=== PATIENT | male | born 2000 | race Caucasian/White ===

== ENCOUNTER 2024-01-07 08:16 | Emergency (ER) | payer BC ==
[2024-01-07] MEDS ORDERED: KETOROLAC 30 MG/ML INJ ONE (09:02)
[2024-01-07 09:21] LABS: Absolute Eosinophils 0.1 K/uL (0-0.5); Absolute Lymphocytes (CBC) 2.2 K/uL (0.7-4.9); Absolute Neutrophil 9.3 K/uL (1.8-8.0); Basophils % 0.4 % (0-1.3); Eosinophils % 0.7 % (0-4.4); Hematocrit 46.2 % (39.6-49.0); Hemoglobin 15.7 g/dL (13.6-17.9); Lymphocytes % 17.3 % (15.3-44.8); MCH 29.1 pg (27.0-35.0); MCHC 33.9 g/dL (32.0-36.0); MCV 85.7 fL (80-100); MPV 8.1 fL (7.6-11.3); Neutrophils % 73.6 % (41.7-73.7); Nucleated Red Blood Cells % 0.1 % (0-0); Platelets 322 thou/uL (152-406); RBC Red Blood Cell Count 5.39 M/uL (4.33-5.43); Red Cell Distribution Width 13.2 % (12.1-15.2)
--- NOTE | 2024-01-07 09:24 | RAD REPORT ---
EXAM DESCRIPTION: RAD - Foot Left 3 View - 01/07/2024 9:17 am CLINICAL HISTORY: PAIN COMPARISON: No comparisons FINDINGS/IMPRESSION: No acute fracture. No malalignment. No significant focal degenerative changes.
[2024-01-07 09:38] LABS: Anion Gap 6.8 mEq/L (5.0-15.0); Potassium 3.8 mEq/L (3.5-5.1); Uric Acid 8.8 mg/dL (3.5-7.2)
--- NOTE | 2024-01-07 09:42 | ER ---
Nurse's Notes [facility] Name: Yahir Bobby Jr Age: 23 yrs Sex: Male : 2000 Arrival Date: 01/07/2024 Time: 08:16 Bed 2 Private MD: Diagnosis: Gout, unspecified Presentation: 01/06 08:31 Chief complaint: Patient states: left foot pain started while at work today, denies iw injury. Coronavirus screen: At this time, the client does not indicate any symptoms associated with coronavirus-19. Ebola Screen: Patient negative for fever greater than or equal to 101.5 degrees Fahrenheit, and additional compatible Ebola Virus Disease symptoms Patient denies exposure to infectious person. Patient denies travel to an Ebola-affected area in the 21 days before illness onset. No symptoms or risks identified at this time. Initial Sepsis Screen: Does the patient meet any 2 criteria? No. Patient's initial sepsis screen is negative. Does the patient have a suspected source of infection? No. Patient's initial sepsis screen is negative. Risk Assessment: Do you want to hurt yourself or someone else? Patient reports no desire to harm self or others. Onset of symptoms was January 07, 2024. 08:31 Method Of Arrival: Wheelchair iw 08:31 Acuity: JIMBO 4 iw 08:46 Acuity: JIMBO 3 iw Historical: - Allergies: 08:32 No Known Allergies; iw - Home Meds: 08:32 None [Active]; iw - PMHx: 08:32 None; iw - PSHx: 08:32 None; iw - Immunization history:: Adult Immunizations not up to date. - Infectious Disease History:: Denies. - Social history:: Smoking status: Reported history of juuling and/or vaping. Screenin:55 [facility] ED Fall Risk Assessment (Adult) History of falling in the last 3 months, ko1 including since admission No falls in past 3 months (0 pts) Confusion or Disorientation No (0 pts) Intoxicated or Sedated No (0 pts) Impaired Gait No (0 pts) Mobility Assist Device Used No (0 pt) Altered Elimination No (0 pt) Score/Fall Risk Level 0 - 2 = Low Risk Oriented to surroundings, Maintained a safe environment, Educated pt \T\ family on fall prevention, incl call for assistance when getting out of bed, Assessed \T\ reinforced patient's understanding of fall precautions, Provided non-skid footwear, Hourly rounding (assess needs \T\ fall precautionary measures) done. Abuse screen: Denies threats or abuse. Denies injuries from another. Nutritional screening: No deficits noted. Tuberculosis screening: No symptoms or risk factors identified. Assessment: 08:55 General: Appears in no apparent distress. Behavior is calm, cooperative, appropriate ko1 for age. Pain: Complains of pain in left foot. Neuro: No deficits noted. Cardiovascular: No deficits noted. Respiratory: No deficits noted. GI: No deficits noted. : No deficits noted. EENT: No deficits noted. Derm: No deficits noted. Musculoskeletal: Reports pain in left foot. Vital Signs: 08:31 BP 142 / 80; Pulse 86; Resp 16; Temp 97.8; Pulse Ox 97% on R/A; Weight 163.29 kg; iw Height 6 ft. 2 in. ; Pain 6/10; 09:17 BP 154 / 81; Pulse 81; Resp 16; Pulse Ox 100% ; ko1 09:45 BP 137 / 81; Pulse 98; Resp 14; Pulse Ox 99% ; ko1 08:31 Body Mass Index 46.22 (163.29 kg, 187.96 cm) iw 08:31 Pain Scale: Adult iw ED Course: 08:23 Patient arrived in ED. im 08:27 Riky Moura MD is Attending Physician. sp3 08:32 Triage completed. iw 08:40 Randy Alvarez, RN is Primary Nurse. bp 08:46 Arm band placed on. iw 08:55 Patient has correct armband on for positive identification. Bed in low position. Call ko1 light in reach. Side rails up X 1. Provided Education on: labs, meds, call light. Pulse ox on. NIBP on. Door closed. Noise minimized. Lights dimmed. Pillow given. 08:55 No provider procedures requiring assistance completed. ko1 09:10 Inserted saline lock: 20 gauge in right antecubital area, using aseptic technique. bp Blood collected. 09:19 Foot Left 3 View XRAY In Process Unspecified. EDMS 09:49 IV discontinued, intact, bleeding controlled, No redness/swelling at site. Pressure ko1 dressing applied. Administered Medications: 09:12 Drug: Ketorolac IVP 30 mg IVP once Route: IVP; Site: right antecubital; ko1 09:27 Follow up: Response: No adverse reaction ko1 09:44 Drug: Colcrys PO 0.6 mg PO once Route: PO; ko1 09:57 Follow up: Response: No adverse reaction ko1 Medication: 08:55 VIS not applicable for this client. ko1 Outcome: 09:42 Discharge ordered by . sp3 09:49 Discharged to home ambulatory, ko1 09:49 Condition: stable 09:49 Discharge instructions given to patient, Instructed on discharge instructions, follow up and referral plans. medication usage, Demonstrated understanding of instructions, follow-up care, medications, Prescriptions given X 2, 09:57 Patient left the ED. ko1 Signatures: Dispatcher [employer] EDCindy Govea RN RN Randy Jacobo RN Riky Ott MD MD sp3 Louisa Thomas RN RN ko1 Mary Ellen Garg Corrections: (The following items were deleted from the chart) 08:33 08:31 Pulse 86bpm; Resp 16bpm; Pulse Ox 97% RA; Temp 97.8F; 163.29 kg; Height 6 ft. 2 iw in.; BMI: 46.2; Pain 6/10, Adult; iw
--- NOTE | 2024-01-07 09:42 | EDPHYS ---
Physician Documentation [facility] Name: Yahir Bobby Jr Age: 23 yrs Sex: Male : 2000 Arrival Date: 01/07/2024 Time: 08:16 Bed 2 Private MD: ED Physician Riky Moura HPI: 01/06 08:49 This 23 yrs old Male presents to ER via Wheelchair with complaints of Foot Pain - left. sp3 08:49 23-year-old male with no past medical history presents with left foot pain that was sp3 there when he woke up. Pain is on the top of the foot extending laterally. He denies any injury, trauma, prior episodes, rash, other joint aches, other somatic symptoms or any other signs or symptoms on ROS at this time. No history of gout or other arthritis in his family.. Historical: - Allergies: 08:32 No Known Allergies; iw - Home Meds: 08:32 None [Active]; iw - PMHx: 08:32 None; iw - PSHx: 08:32 None; iw - Immunization history:: Adult Immunizations not up to date. - Infectious Disease History:: Denies. - Social history:: Smoking status: Reported history of juuling and/or vaping. ROS: 08:50 Constitutional: Negative for fever, chills, and weight loss, Eyes: Negative for injury, sp3 pain, redness, and discharge, Neck: Negative for injury, pain, and swelling, Cardiovascular: Negative for chest pain, palpitations, and edema, Respiratory: Negative for shortness of breath, cough, wheezing, and pleuritic chest pain, Abdomen/GI: Negative for abdominal pain, nausea, vomiting, diarrhea, and constipation, Back: Negative for injury and pain, : Negative for injury, bleeding, discharge, and swelling, Skin: Negative for injury, rash, and discoloration, Neuro: Negative for headache, weakness, numbness, tingling, and seizure, Psych: Negative for depression, anxiety, suicide ideation, homicidal ideation, and hallucinations, Allergy/Immunology: Negative for hives, rash, and allergies, Endocrine: Negative for neck swelling, polydipsia, polyuria, polyphagia, and marked weight changes, Hematologic/Lymphatic: Negative for swollen nodes, abnormal bleeding, and unusual bruising, 08:50 All other systems are negative, Exam: 08:50 Constitutional: This is a well developed, well nourished patient who is awake, alert, sp3 and in no acute distress. Head/Face: Normocephalic, atraumatic. Eyes: Pupils equal round and reactive to light, extra-ocular motions intact. Lids and lashes normal. Conjunctiva and sclera are non-icteric and not injected. Cornea within normal limits. Periorbital areas with no swelling, redness, or edema. Neck: Trachea midline, no thyromegaly or masses palpated, and no cervical lymphadenopathy. Supple, full range of motion without nuchal rigidity, or vertebral point tenderness. No Meningismus. Chest/axilla: Normal chest wall appearance and motion. Nontender with no deformity. No lesions are appreciated. Cardiovascular: Regular rate and rhythm with a normal S1 and S2. No gallops, murmurs, or rubs. Normal PMI, no JVD. No pulse deficits. Respiratory: Lungs have equal breath sounds bilaterally, clear to auscultation and percussion. No rales, rhonchi or wheezes noted. No increased work of breathing, no retractions or nasal flaring. Abdomen/GI: Soft, non-tender, with normal bowel sounds. No distension or tympany. No guarding or rebound. No evidence of tenderness throughout. Back: No spinal tenderness. No costovertebral tenderness. Full range of motion. Skin: Warm, dry with normal turgor. Normal color with no rashes, no lesions, and no evidence of cellulitis. Neuro: Awake and alert, GCS 15, oriented to person, place, time, and situation. Cranial nerves II-XII grossly intact. Motor strength 5/5 in all extremities. Sensory grossly intact. Cerebellar exam normal. Normal gait. Psych: Awake, alert, with orientation to person, place and time. Behavior, mood, and affect are within normal limits. 08:50 Musculoskeletal/extremity: Extremity exam normal except for left foot with pain on the top region over the proximal metatarsals without signs of injury. There is no swelling. DP pulses normal. Distal neurovascular exam including capillary refill is normal. No tophi noted.. Vital Signs: 08:31 BP 142 / 80; Pulse 86; Resp 16; Temp 97.8; Pulse Ox 97% on R/A; Weight 163.29 kg; iw Height 6 ft. 2 in. ; Pain 6/10; 09:17 BP 154 / 81; Pulse 81; Resp 16; Pulse Ox 100% ; ko1 09:45 BP 137 / 81; Pulse 98; Resp 14; Pulse Ox 99% ; ko1 08:31 Body Mass Index 46.22 (163.29 kg, 187.96 cm) iw 08:31 Pain Scale: Adult iw MDM: 08:33 Patient medically screened. sp3 08:50 Data reviewed: vital signs, nurses notes, lab test result(s), radiologic studies. ED sp3 course: 23-year-old male with no past medical history with left foot pain new in nature without trauma. Consider stress fracture versus other arthritic process. X-ray and labs pending. Ketorolac IV for pain control. Disposition pending workup and patient course with probable discharge and orthopedic follow-up as needed.. 09:41 ED course: Foot x-ray is normal. Uric acid elevated at 8.8 with remainder of labs sp3 unremarkable. Will treat with colchicine and NSAIDs and follow-up to PCP as needed.. 01/06 08:42 Order name: Basic Metabolic Panel; Complete Time: 09:40 sp3 01/06 08:42 Order name: CBC with Diff; Complete Time: 09:29 sp3 01/06 08:42 Order name: Uric Acid; Complete Time: 09:40 sp3 01/06 08:42 Order name: Foot Left 3 View XRAY; Complete Time: 09:29 sp3 01/06 08:42 Order name: IV Saline Lock; Complete Time: 09:10 sp3 01/06 08:42 Order name: Labs collected and sent; Complete Time: 09:10 sp3 Administered Medications: 09:12 Drug: Ketorolac IVP 30 mg IVP once Route: IVP; Site: right antecubital; ko1 09:27 Follow up: Response: No adverse reaction ko1 09:44 Drug: Colcrys PO 0.6 mg PO once Route: PO; ko1 09:57 Follow up: Response: No adverse reaction ko1 Disposition Summary: 01/07/24 09:42 Discharge Ordered Notes: Location: Home sp3 Condition: Stable sp3 Diagnosis - Gout, unspecified sp3 Followup: sp3 - With: Private Physician - When: Upon discharge from the Emergency Department - Reason: Continuance of care Discharge Instructions: - Discharge Summary Sheet sp3 - Gout sp3 Forms: - Medication Reconciliation Form sp3 - Antibiotic Education sp3 - Prescription Opioid Use sp3 - Patient Portal Instructions sp3 - Leadership Thank You Letter sp3 Prescriptions: - colchicine 0.6 mg Oral tablet - take 1 tablet ORAL route 2 times per day; 14 tablet; Refills: 0, Product sp3 Selection Permitted - Diclofenac Sodium 75 mg Oral Tablet Sustained Release - take 1 tablet ORAL route 2 times per day; 30 tablet; Refills: 0, Product sp3 Selection Permitted Signatures: Dispatcher [employer] Cindy Thornton RN RN iw Patel, Setul, MD MD sp3 Louisa Thomas RN RN ko1
[2024-01-07] MEDS ORDERED: COLCHICINE 0.6 MG TAB ONE (09:43)
[2024-01-07 10:55] VITALS: BP 137/81; TEMP 97.8; O2SAT 99
== END 2024-01-07 09:57 | disposition home or self-care (01) ==
LOC: ER 08:16
DX: M10.9 Gout, unspecified (principal)
CPT/HCPCS: 36415; 80048; 84550; 85025; 96374; 99284